=== PATIENT | female | born 2005 | race Caucasian/White ===

== ENCOUNTER 2025-03-07 11:16 | Outpatient (CLI) | payer OTHER, SELFPAY ==
[2025-03-07 23:18] LABS: Chlamydia DNA Amplified* NOT DETECTED (No Detected); GC DNA Amplified* NOT DETECTED (No Detected)
== END 2025-03-07 11:17 | disposition home or self-care (01) ==
PROVIDERS: Visit Provider Obstetrics & Gynecology
DX: Z11.3 Encounter for screening for infections with a predominantly sexual mode of transmission (principal); Z11.59 Encounter for screening for other viral diseases; Z11.4 Encounter for screening for human immunodeficiency virus [HIV]
CPT/HCPCS: 86703; 86803; 87340; 87491; 87591

== ENCOUNTER 2025-05-09 15:16 | Outpatient (CLI) | payer OTHER, SELFPAY ==
[2025-05-09 22:38] LABS: Bacterial Vaginosis* POSITIVE (Negative); Candida glab/krus NOT DETECTED (No Detected)
[2025-05-09 23:09] LABS: Chlamydia DNA Amplified* NOT DETECTED (No Detected); GC DNA Amplified* NOT DETECTED (No Detected)
[2025-05-17 10:52] LABS: Pap Test Screened Manually Done
== END 2025-05-09 15:17 | disposition home or self-care (01) ==
PROVIDERS: Visit Provider Midwife
DX: Z12.4 Encounter for screening for malignant neoplasm of cervix (principal); Z11.3 Encounter for screening for infections with a predominantly sexual mode of transmission
CPT/HCPCS: 81513; 87086; 87481; 87491; 87591; 87624; 87625; 87661; 88141; 88142; 88175